=== PATIENT | female | born 1965 | race Hispanic/Latino ===

== ENCOUNTER 2018-03-29 04:16 | Emergency (ER) | payer MEDICARE ==
[2018-03-29] MEDS ORDERED: TORADOL IM ONE (08:36)
--- NOTE | 2018-03-29 08:38 | Emergency Department Report ---
ED Fall HPI - General Chief Complaint: Fall Stated Complaint: ABDOMINAL PAIN Time Seen by Provider: 03/29/18 08:10 Source: patient Mode of arrival: Ambulatory - Related Data Allergies Allergy/AdvReac Type Severity Reaction Status Date / Time No Known Allergies Allergy Unverified 03/29/18 04:54 ED Review of Systems ROS: Stated complaint: ABDOMINAL PAIN Other details as noted in HPI ED Past Medical Hx - Past Medical History Previous Medical History?: Yes Hx CVA: Yes - Surgical History Past Surgical History?: Yes Additional Surgical History: tubal ligation, eye suregery - Social History Smoking Status: Never Smoker Substance Use Type: None ED Physical Exam - General Limitations: No Limitations ED Course Vital Signs 03/29/18 04:50 Temperature 98.6 F Pulse Rate 84 Respiratory 17 Rate Blood Pressure 90/45 O2 Sat by Pulse 99 Oximetry Critical care attestation.: If time is entered above; I have spent that time in minutes in the direct care of this critically ill patient, excluding procedure time. ED Disposition Condition: Stable Referrals: PRIMARY CARE, [Primary Care Provider] - 3-5 Days
--- NOTE | 2018-03-29 08:44 | Emergency Department Report ---
Chief Complaint: Fall Stated Complaint: ABDOMINAL PAIN Time Seen by Provider: 03/29/18 08:10 - HPI History of Present Illness: This is a 53-year-old female nontoxic, well nourished in appearance, no acute signs of distress presents to the ED with c/o of left shoulder pain, abdominal pain, low back pain, left rib pain, and neck pain stats post fall. Patient stated last night she was in her kitchen and slipped and while falling she hit her rib against the side of the door and landed on her back. Patient denies any head trauma or loss of consciousness. Patient denies any headache. Patient denies ecchymosis, chest pain, short of breath, blurry vision, fever, chills, stiff neck, decreased range of motion, abnormal gait, bladder or bowel instability, diaphoresis, nausea, vomiting, joint pain or swelling, visual changes, chest wall tenderness, numbness or tingling sensation extremity. Patient agrees to good rectal tone with no bladder overflow. Patient is currently ambulatory with no assistance. Patient denies any EtOH or recreational drugs. Patient denies any drug allergies. PMH includes CVA with left side weakness. - Exam Vital Signs: Vital Signs 03/29/18 04:50 Temperature 98.6 F Pulse Rate 84 Respiratory 17 Rate Blood Pressure 90/45 O2 Sat by Pulse 99 Oximetry Physical Exam: GENERAL: The patient is a well-developed, well-nourished in no apparent distress. Patient is alert and acting appropriately for age. Alert and oriented 3, no apparent distress, normal gait, atraumatic. NECK: Supple. Cervical spine tenderness. No carotid bruits. No lymphadenopathy or thyromegaly.nontender. No meningitic signs are noted. LUNGS: Clear to auscultation. Non labor breathing. No intercostal retractions. Symmetrical with respiration, no wheezing, no rales, or crackles. HEART: Regular rate and rhythm without murmur, rubs or gallops. No reproducible. S1, S2 present, regular rate and rhythm without murmur, no rubs, no gallops. ABDOMEN: Soft and nondistended. Diffuse tenderness upon palpation. Positive bowel sounds. No hepatosplenomegaly was noted. No guarding or rebound tenderness, negative epigastric bruit. Negative psoas sign, negative gandhi sign , negative McBurneys sign EXTREMITIES: Without any cyanosis, clubbing, rash, lesions or edema. Decreased ROM of left shoulder with tenderness. Peripheral pulses intact. Capillary refill less than 2 seconds. Full range of motion bilaterally. MSE screening note: Focused history and physical exam performed. Due to findings the following was ordered: 1- This initial assessment/diagnostic orders/clinical plan/ treatment(s) is/are subject to change based on pt's health status, clinical progression and re- assessment by fellow clinical providers in the ED. Further treatment and workup at subsequent clinical provers discretion. Patient/guardians urged not to elope from ED as their condition may be serious if not clinically assessed and managed. 2-xrays ordered 3-Patient received Toradol for pain IM 4-Patient is to be put on the main side for MD 5- patient has hypotension ED Disposition for MSE Condition: Stable Referrals: PRIMARY CARE, [Primary Care Provider] - 3-5 Days
[2018-03-29] MEDS ORDERED: NACL 0.9% 1000 ML 1,000 ML IV ONE (08:45)
--- NOTE | 2018-03-29 10:03 | Emergency Department Report ---
ED Fall HPI - General Chief Complaint: Fall Stated Complaint: ABDOMINAL PAIN Time Seen by Provider: 03/29/18 08:10 Source: patient, RN notes reviewed Mode of arrival: Wheelchair Limitations: Physical Limitation - History of Present Illness Initial Comments: This is a 53-year-old female who is unknown previously to this provider, presents to the ER with abdominal pain and left-sided rib pain after mechanical fall. Prior to the fall, she had no complaints. She has left-sided hemiparesis secondary to an old stroke. Her pain is sharp, increases with palpation and it decreases with rest. She denies headache, neck pain, chest pain. She has no new extremity weakness or numbness. In the emergency room, her workup demonstrated a negative noncontrast CT scan of the brain as per radiology, and a CT scan of the chest, abdomen and pelvis demonstrated a splenic laceration and hemoperitoneum. She was seen initially in fast track by the nurse practitioner, who had ordered ketorolac prior my personal evaluation. Patient was also found to be incidentally hyponatremic. She received fentanyl, normal saline, and was consented for packed red blood cell transfusion. This hospital does not have trauma surgery available for consultation. Therefore, the patient will be transferred to the [facility], and Dr. Burrell was the accepting physician. The patient has an emergency condition which cannot be definitively managed at this hospital, and will therefore require transfer for definitive care, for service is not available at this facility. 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 denies: headache, neck pain - Related Data Allergies Allergy/AdvReac Type Severity Reaction Status Date / Time No Known Allergies Allergy Verified 03/29/18 13:12 ED Review of Systems ROS: Stated complaint: ABDOMINAL PAIN Other details as noted in HPI Comment: All other systems reviewed and negative Constitutional: denies: fever ENT: denies: epistaxis Respiratory: denies: cough Cardiovascular: chest pain (left-sided chest wall pain) Gastrointestinal: abdominal pain Neurological: weakness (chronic left-sided weakness) ED Past Medical Hx - Past Medical History Previous Medical History?: Yes Hx CVA: Yes - Surgical History Past Surgical History?: Yes Additional Surgical History: tubal ligation, eye suregery - Social History Smoking Status: Never Smoker Substance Use Type: None ED Physical Exam - General Limitations: Physical Limitation General appearance: alert, in no apparent distress - Head Head exam: Present: atraumatic, normocephalic - Eye Eye exam: Present: normal appearance, PERRL, EOMI, other (visual acuity intact to finger counting, color perception, reading at a close distance). Absent: nystagmus - ENT ENT exam: Present: normal exam, normal orophraynx, mucous membranes moist, normal external ear exam - Neck Neck exam: Present: normal inspection, full ROM (there is no midline cervical spine pain, tenderness). Absent: tenderness, meningismus - Respiratory Respiratory exam: Present: normal lung sounds bilaterally. Absent: respiratory distress - Cardiovascular Cardiovascular Exam: Present: regular rate, normal rhythm, normal heart sounds. Absent: systolic murmur, diastolic murmur, rubs, gallop - GI/Abdominal GI/Abdominal exam: Present: soft, tenderness, normal bowel sounds. Absent: distended, guarding, rebound, rigid, pulsatile mass - Extremities Exam Extremities exam: Present: normal inspection (contracture noted in the left upper extremity), normal capillary refill, other (the pelvis is stable. There is no long bony tenderness. Chronic weakness in the left upper arm, left lower arm). Absent: tenderness, pedal edema, joint swelling, calf tenderness - Back Exam Back exam: Present: normal inspection, full ROM, paraspinal tenderness - Neurological Exam Neurological exam: Present: alert, oriented X3, CN II-XII intact, motor sensory deficit (chronic weakness left arm, left leg) - Psychiatric Psychiatric exam: Present: normal affect, normal mood - Skin Skin exam: Present: warm, dry, intact, normal color. Absent: rash ED Course Vital Signs 03/29/18 03/29/18 03/29/18 04:50 13:01 13:07 Temperature 98.6 F 98.6 F Pulse Rate 84 74 74 Respiratory 17 18 Rate Blood Pressure 90/45 Blood Pressure 124/62 [Right] O2 Sat by Pulse 99 Oximetry 03/29/18 14:20 Temperature 97.6 F Pulse Rate 76 Respiratory 18 Rate Blood Pressure Blood Pressure 123/72 [Right] O2 Sat by Pulse Oximetry - EJ/Peripheral Line Neck R Time Out Performed: Yes Indications: multiple IV sites needed Skin Cleansed in Sterile Fashion: Yes Size: 18 Dressing Placed: Tegaderm Patient Tolerated Procedure: well ED Medical Decision Making - Lab Data Result diagrams: 03/29/18 10:10 03/29/18 10:10 Vital Signs 03/29/18 03/29/18 03/29/18 04:50 13:01 13:07 Temperature 98.6 F 98.6 F Pulse Rate 84 74 74 Respiratory 17 18 Rate Blood Pressure 90/45 Blood Pressure 124/62 [Right] O2 Sat by Pulse 99 Oximetry 03/29/18 14:20 Temperature 97.6 F Pulse Rate 76 Respiratory 18 Rate Blood Pressure Blood Pressure 123/72 [Right] O2 Sat by Pulse Oximetry Lab Results 03/29/18 03/29/18 03/29/18 Range/Units 10:10 10:10 10:10 WBC 17.1 H (4.5-11.0) K/mm3 RBC 4.75 (3.65-5.03) M/mm3 Hgb 9.6 L (10.1-14.3) gm/dl Hct 31.7 (30.3-42.9) % MCV 67 L (79-97) fl MCH 20 L (28-32) pg MCHC 30 (30-34) % RDW 20.2 H (13.2-15.2) % Plt Count 248 (140-440) K/mm3 PT 13.1 (12.2-14.9) Sec. INR 0.95 (0.87-1.13) Sodium 122 L (137-145) mmol/L Potassium 3.6 (3.6-5.0) mmol/L Chloride 87.3 L (98-107) mmol/L Carbon Dioxide 23 (22-30) mmol/L Anion Gap 15 mmol/L BUN 21 H (7-17) mg/dL Creatinine 0.9 (0.7-1.2) mg/dL Estimated GFR > 60 ml/min BUN/Creatinine Ratio 23 % Glucose 139 H (65-100) mg/dL Calcium 9.1 (8.4-10.2) mg/dL Total Bilirubin 0.30 (0.1-1.2) mg/dL AST 15 (5-40) units/L ALT 6 L (7-56) units/L Alkaline Phosphatase 124 (35-129) units/L Total Protein 6.1 L (6.3-8.2) g/dL Albumin 4.1 (3.9-5) g/dL Albumin/Globulin Ratio 2.1 % Lipase (13-60) units/L Blood Type Antibody Screen Crossmatch 03/29/18 03/29/18 Range/Units 10:10 13:13 WBC (4.5-11.0) K/mm3 RBC (3.65-5.03) M/mm3 Hgb (10.1-14.3) gm/dl Hct (30.3-42.9) % MCV (79-97) fl MCH (28-32) pg MCHC (30-34) % RDW (13.2-15.2) % Plt Count (140-440) K/mm3 PT (12.2-14.9) Sec. INR (0.87-1.13) Sodium (137-145) mmol/L Potassium (3.6-5.0) mmol/L Chloride (98-107) mmol/L Carbon Dioxide (22-30) mmol/L Anion Gap mmol/L BUN (7-17) mg/dL Creatinine (0.7-1.2) mg/dL Estimated GFR ml/min BUN/Creatinine Ratio % Glucose (65-100) mg/dL Calcium (8.4-10.2) mg/dL Total Bilirubin (0.1-1.2) mg/dL AST (5-40) units/L ALT (7-56) units/L Alkaline Phosphatase (35-129) units/L Total Protein (6.3-8.2) g/dL Albumin (3.9-5) g/dL Albumin/Globulin Ratio % Lipase 11 L (13-60) units/L Blood Type O NEGATIVE Antibody Screen Negative Crossmatch See Detail - Radiology Data Radiology results: report reviewed Critical Care Time: Yes Critical care time in (mins) excluding proc time.: 45 Critical care attestation.: If time is entered above; I have spent that time in minutes in the direct care of this critically ill patient, excluding procedure time. ED Disposition Clinical Impression: Hemoperitoneum, Splenic laceration, Hyponatremia, Rib fracture Disposition: [id number]/[id number] SHRT-TRM GEN HOSP IP Is pt being admited?: No Does the pt Need Aspirin: No Condition: Critical Referrals: PRIMARY CARE, [Primary Care Provider] - 3-5 Days
[2018-03-29 10:24] LABS: Hematocrit 31.7 % (30.3-42.9); Hemoglobin 9.6 gm/dl (10.1-14.3); Mean Corpuscular HGB Conc 30 % (30-34); Platelet Count 248 K/mm3 (140-440); Red Blood Count 4.75 M/mm3 (3.65-5.03)
[2018-03-29 10:30] LABS: Mean Corpuscular Hemoglobin 20 pg (28-32); Mean Corpuscular Volume 67 fl (79-97)
[2018-03-29 10:31] LABS: Red Cell Distribution Width 20.2 % (13.2-15.2)
[2018-03-29 10:35] LABS: INR 0.95 (0.87-1.13)
[2018-03-29 10:44] LABS: Alanine Aminotransferase 6 units/L (7-56); Albumin 4.1 g/dL (3.9-5); BUN/Creatinine Ratio 23; Blood Urea Nitrogen 21 mg/dL (7-17); Calcium 9.1 mg/dL (8.4-10.2); Hemolysis Index 1
[2018-03-29] MEDS ORDERED: NACL 0.9% 1000 ML 1,000 ML ONE (13:08)
[2018-03-29] MEDS ORDERED: NACL 0.9% 500 ML 500 ML IV ONE (13:11)
[2018-03-29] MEDS: SUBLIMAZE IV ONE ×2 (14:01→14:33)
[2018-03-29] MEDS ORDERED: SUBLIMAZE IV ONE (14:05)
[2018-03-29 14:23] VITALS: BP 123/72
--- NOTE | 2018-03-31 12:57 | Cat Scan Report ---
CT CHEST WITH CONTRAST: HISTORY: Chest wall pain. COMPARISON: none. TECHNIQUE: Helical CT in 1.25mm intervals following IV contrast. Sagittal and coronal reformatted images. FINDINGS: Thyroid gland: Normal. Tracheobronchial tree: Normal. Esophagus: Normal. Heart: Normal. Pericardium: Normal. Mediastinum: Normal. Lung Cleary: There are mild bibasilar atelectatic changes. No evidence for parenchymal disease, infiltrate or mass. Pleural Spaces: Normal. Musculoskeletal: Minimally displaced left lateral ninth rib fracture is identified. IMPRESSION: Left ninth rib fracture. Bibasilar atelectatic changes.
--- NOTE | 2018-03-31 12:57 | Cat Scan Report ---
CT ABDOMEN PELVIS WITH CONTRAST: HISTORY: abdominal pain. COMPARISON: none. TECHNIQUE: Helical CT in 1.25mm intervals following IV contrast. Sagittal and coronal reconstructions. FINDINGS: Lung bases: Mild bibasilar atelectasis. Normal heart size. Liver: Normal. Biliary system: There is a large calcified gallstone measuring 2.5 cm. No biliary dilatation or inflammation. Pancreas: Normal. Spleen: Irregular perfusion defects are identified throughout the posterior spleen consistent with splenic laceration. There is small to medium blood surrounding the spleen but no arterial spurt of contrast is identified on CT. Kidneys/ureters/bladder: 1 or 2 tiny calyceal stones are noted in the superior left kidney. Otherwise the kidneys, ureters and bladder are unremarkable. Adrenal glands: Normal. Aorta: Normal. Intestines: Within normal limits given no oral contrast was administered. Appendix: Normal. Pelvic viscera: The uterus is markedly enlarged and contains multiple fibroids ranging from 1 cm to 6 cm in diameter. Mild right hydrosalpinx and a moderate to large right ovarian cyst measuring 4.4 cm is also identified. The left adnexa is unremarkable. Ascites: There is moderate intermediate density fluid in the abdomen consistent with hemoperitoneum. Adenopathy: None. Musculoskeletal: Mildly displaced left lateral ninth rib fracture. No additional fractures are identified. IMPRESSION: Splenic laceration with mild to moderate hemoperitoneum. Left lateral ninth rib fracture. Uterine fibroid disease. Right hydrosalpinx. 4.4 cm right ovarian cyst. Large gallstone. Left nephrolithiasis.
--- NOTE | 2018-03-31 12:57 | Cat Scan Report ---
CT HEAD WITHOUT CONTRAST: HISTORY: Fall, head trauma. TECHNIQUE: Sequential 2.5mm CT images. COMPARISON: none. FINDINGS: Cerebral Parenchyma: Moderate size chronic infarct in the right basal ganglia extending to the right haley radiata measures up to 3.0 x 1.4 cm. There is mild cortical volume loss in the right cerebral hemisphere. The left cerebral hemisphere is unremarkable. Cerebellum: Within normal limits. Brainstem: Within normal limits. Ventricles: Normal. Sella: Normal. Extra-axial spaces: Normal. Basal Cisterns: Normal. Intracranial Hemorrhage: None. Midline Shift: None. Calvarium: Normal. Sinuses: Normal. Mastoid Air Cells: Normal. Visualized Orbits: Normal. IMPRESSION: No acute intracranial process. Chronic infarct on the right side as described.
== END 2018-03-29 14:51 | disposition short-term general hospital (02) ==
LOC: ED 04:16
DX: S22.32XA Fracture of one rib, left side, initial encounter for closed fracture (principal); S36.039A Unspecified laceration of spleen, initial encounter; K66.1 Hemoperitoneum; E87.1 Hypo-osmolality and hyponatremia; Z86.73 Personal history of transient ischemic attack (TIA), and cerebral infarction without residual deficits; Z98.51 Tubal ligation status; W01.0XXA Fall on same level from slipping, tripping and stumbling without subsequent striking against object, initial encounter; Y93.89 Activity, other specified; Y92.098 Other place in other non-institutional residence as the place of occurrence of the external cause; Y99.8 Other external cause status
CPT/HCPCS: 36415; 36569; 70450; 71101; 71260; 72040; 72070; 72100; 73030; 74177; 80053; 83690; 85027; 85610; 86850; 86900; 86901; 86920; 96361; 96372; 96374; 99291; J1885; J3010; J7030; Q9967